=== PATIENT | female | born 1950 | race Caucasian/White ===

== ENCOUNTER 2020-12-08 12:29 | Observation (INO) ==
[2020-12-08] MEDS ORDERED: NITROGLYCERIN SL 0.4 MG TABLET SL PRN (13:03)
[2020-12-08 13:15] LABS: Basophils % 0.6 % (0.0-0.8); Eosinophils # 0.1 10*3/uL (0.0-0.87); Hematocrit 43.2 VOL% (35.7-47.0); Hemoglobin 13.9 GM/DL (12.0-16.0); Immature Granulocytes % 0.2 %; Immature Granulocytes Absolute 0.01 #; Lymphocytes % 38.2 % (21.3-54.2); Mean Corpuscular HGB Conc 32.2 GM/DL (32-36); Mean Platelet Volume 10.7 FL (9.6-12.0); Monocytes % 8.4 % (1.7-12.7); Neutrophils % 51.6 % (38.7-73.9); Platelet Count 165 T/CUMM (130-400); Red Blood Count 4.91 MC/CUMM (3.8-5.5); Red Cell Distribution Width 13.7 % (9.3-17.3); White Blood Count 5.2 T/CUMM (4-12)
[2020-12-08 13:28] LABS: PT Patient Result 10.7 SECS (9.8-11.9)
[2020-12-08 13:42] LABS: Albumin 4.2 G/DL (3.4-5.0); Bilirubin,Total 0.5 MG/DL (0.2-1.0); Calcium 8.8 MG/DL (8.5-10.1); Osmolality,Calculated 279.5 MOS/KG (273-304); Potassium 3.9 MMOL/L (3.5-5.1); Total Protein 7.1 G/DL (6.4-8.3)
[2020-12-08] MEDS ORDERED: DEXTROSE 50% 25 GM/50 ML VIAL IV PRN (14:24)
[2020-12-08] MEDS ORDERED: BISACODYL 5 MG TABLET PO PRN (14:24)
[2020-12-08] MEDS ORDERED: ASPIRIN CHEW 81 MG TABLET PO ONE (14:24)
[2020-12-08] MEDS ORDERED: ACETAMINOPHEN 325 MG TABLET PO PRN (14:24)
[2020-12-08] MEDS ORDERED: GLUCAGON 1 MG VIAL IM PRN (14:24)
[2020-12-08] MEDS ORDERED: ONDANSETRON 4 MG/2 ML VIAL IV PRN (14:24)
[2020-12-08] MEDS: PANTOPRAZOLE 40 MG TABLET PO SCH (16:38)
[2020-12-08] MEDS ORDERED: SERTRALINE 25 MG TABLET PO SCH ×3 (17:30→21:00)
[2020-12-08] MEDS ORDERED: ENOXAPARIN 80 MG/0.8 ML SYRINGE SUBCUT ONE (17:30)
[2020-12-08] MEDS ORDERED: SERTRALINE 25 MG TABLET PO ONE (17:44)
[2020-12-08] MEDS: carvediloL 3.125 MG TABLET PO SCH (18:11)
[2020-12-08] MEDS: ACETAMINOPHEN 325 MG TABLET PO SCH ×2 (18:12→20:55)
[2020-12-08] MEDS: GABAPENTIN 100 MG CAPSULE PO SCH ×2 (20:54→21:21)
[2020-12-08] MEDS ORDERED: SIMVASTATIN 40 MG TABLET PO SCH (21:00)
[2020-12-08] MEDS ORDERED: SIMVASTATIN 20 MG TABLET PO SCH (21:00)
[2020-12-08] MEDS ORDERED: ENOXAPARIN 40 MG/0.4 ML SYRINGE SUBCUT SCH (21:00)
[2020-12-09] MEDS ORDERED: LEVOTHYROXINE 88 MCG TABLET PO SCH (06:30)
[2020-12-09 06:38] LABS: Basophils % 0.7 % (0.0-0.8); Eosinophils # 0.1 10*3/uL (0.0-0.87); Eosinophils % 2.1 % (0.00-10.9); Hematocrit 40.8 VOL% (35.7-47.0); Hemoglobin 13.1 GM/DL (12.0-16.0); Immature Granulocytes % 0.5 %; Immature Granulocytes Absolute 0.02 #; Lymphocytes # 1.9 10*3/uL (1.4-4.0); Lymphocytes % 46.1 % (21.3-54.2); Mean Corpuscular HGB Conc 32.1 GM/DL (32-36); Mean Corpuscular Volume 90.1 FL (87-102); Mean Platelet Volume 11.3 FL (9.6-12.0); Monocytes % 9.5 % (1.7-12.7); Neutrophils % 41.1 % (38.7-73.9); Platelet Count 160 T/CUMM (130-400); Red Blood Count 4.53 MC/CUMM (3.8-5.5); Red Cell Distribution Width 13.8 % (9.3-17.3); White Blood Count 4.2 T/CUMM (4-12)
[2020-12-09 07:01] LABS: Calcium 8.6 MG/DL (8.5-10.1); Osmolality,Calculated 285.1 MOS/KG (273-304); Potassium 3.6 MMOL/L (3.5-5.1); Risk Ratio 4.44; VLDL CHOLESTEROL 32.8 MG/DL
[2020-12-09 08:13] VITALS: BP 108/52
[2020-12-09] MEDS: PANTOPRAZOLE 40 MG TABLET PO SCH (08:39)
[2020-12-09] MEDS: carvediloL 3.125 MG TABLET PO SCH (08:39)
[2020-12-09] MEDS: ACETAMINOPHEN 325 MG TABLET PO SCH (08:40)
[2020-12-09] MEDS: GABAPENTIN 100 MG CAPSULE PO SCH (08:40)
[2020-12-09] MEDS ORDERED: ASPIRIN EC 325 MG TABLET PO SCH (09:00)
[2020-12-09] MEDS ORDERED: PANTOPRAZOLE 40 MG TABLET PO SCH (09:00)
[2020-12-09] MEDS ORDERED: POTASSIUM CHLORIDE 10 MEQ TABLET PO SCH (09:00)
[2020-12-09] MEDS ORDERED: ASPIRIN EC 81 MG TABLET PO SCH (09:00)
[2020-12-09] MEDS ORDERED: FUROSEMIDE 20 MG TABLET PO SCH (09:00)
[2020-12-09] MEDS ORDERED: GABAPENTIN 100 MG CAPSULE PO SCH (09:00)
[2020-12-09] MEDS ORDERED: SERTRALINE 25 MG TABLET PO ONE (17:44)
[2020-12-09] MEDS ORDERED: ENOXAPARIN 40 MG/0.4 ML SYRINGE SUBCUT SCH (21:00)
== END 2020-12-09 10:43 | disposition home or self-care (01) ==
LOC: N.ED 12:29 → N.EDINP 12:29 → N.TELES 16:15
PROVIDERS: ADMIT Emergency Medicine; ATTEND Emergency Medicine

== ENCOUNTER 2021-08-17 12:23 | Inpatient (IN) ==
[2021-08-17] MEDS ORDERED: MAGNESIUM HYDROXIDE SUSP 30 ML UDCUP PO PRN (14:15)
[2021-08-17 15:15] LABS: Alanine Aminotransferase 18 U/L (13-56); Albumin 3.9 G/DL (3.4-5.0); Alkaline Phosphatase 87 U/L (45-117); Aspartate Amino Transferase 14 U/L (0-37); Bilirubin,Total < 0.39 MG/DL (0.20-1.00); Blood Urea Nitrogen 17 MG/DL (7-18); Carbon Dioxide 30 MMOL/L (21-32); Estimated Glom Filtration Rate 80 ML/MIN; Glucose 117 MG/DL (74-106); Osmolality,Calculated 288.8 MOS/KG (273-304); Potassium 4.2 MMOL/L (3.5-5.1); Sodium 144 MMOL/L (136-145); Total Protein 6.4 G/DL (6.4-8.2)
[2021-08-17 15:16] LABS: Basophils % 0.4 % (0.0-0.8); Eosinophils # 0.1 10*3/uL (0.0-0.87); Eosinophils % 1.1 % (0.00-10.9); Hematocrit 39.9 VOL% (35.7-47.0); Hemoglobin 12.7 GM/DL (12.0-16.0); Immature Granulocytes % 0.2 %; Immature Granulocytes Absolute 0.01 #; Lymphocytes # 1.1 10*3/uL (1.4-4.0); Lymphocytes % 18.9 % (21.3-54.2); Mean Corpuscular HGB Conc 31.8 GM/DL (32-36); Mean Corpuscular Volume 86.7 FL (87-102); Mean Platelet Volume 11.1 FL (9.6-12.0); Monocytes % 5.9 % (1.7-12.7); Neutrophils % 73.5 % (38.7-73.9); Platelet Count 141 T/CUMM (130-400); Red Cell Distribution Width 13.2 % (9.3-17.3); White Blood Count 5.6 T/CUMM (4-12)
[2021-08-17 15:27] LABS: INR 0.9; PT Patient Result 10.4 SECS (10.5-12.0)
[2021-08-17] MEDS: LACTATED RINGERS 1,000 ML IV SCH (17:25)
[2021-08-17] MEDS ORDERED: ONDANSETRON 4 MG/2 ML VIAL IV PRN (17:34)
[2021-08-17] MEDS ORDERED: DOCUSATE SODIUM 100 MG CAPSULE PO PRN (17:34)
[2021-08-17] MEDS ORDERED: ALBUTEROL 2.5 MG/3 ML NEB RESP TX PRN (17:35)
[2021-08-17] MEDS: SIMVASTATIN 40 MG TABLET PO SCH (20:15)
[2021-08-17] MEDS: SERTRALINE 25 MG TABLET PO SCH (20:25)
[2021-08-18] MEDS ORDERED: MORPHINE 2 MG/1 ML SYRINGE IV PRN (02:05)
[2021-08-18] MEDS: LACTATED RINGERS 1,000 ML IV SCH (04:08)
[2021-08-18 05:26] LABS: Basophils % 0.3 % (0.0-0.8); Eosinophils % 0.7 % (0.00-10.9); Hemoglobin 11.3 GM/DL (12.0-16.0); Immature Granulocytes % 0.3 %; Immature Granulocytes Absolute 0.02 #; Lymphocytes % 16.9 % (21.3-54.2); Mean Corpuscular HGB Conc 31.4 GM/DL (32-36); Mean Platelet Volume 11.2 FL (9.6-12.0); Monocytes % 9.4 % (1.7-12.7); Neutrophils % 72.4 % (38.7-73.9); Platelet Count 123 T/CUMM (130-400); Red Blood Count 4.09 MC/CUMM (3.8-5.5); Red Cell Distribution Width 13.3 % (9.3-17.3)
[2021-08-18 05:46] LABS: Calcium 8.6 MG/DL (8.5-10.1); Osmolality,Calculated 284.1 MOS/KG (273-304); Potassium 3.9 MMOL/L (3.5-5.1)
[2021-08-18 05:53] LABS: Risk Ratio 2.66; Thyroid Stimulating Hormone 3.38 uIU/ml (0.358-3.74); VLDL Cholesterol 17.4 MG/DL
[2021-08-18] MEDS: LEVOTHYROXINE 88 MCG TABLET PO SCH (06:51)
[2021-08-18] MEDS ORDERED: PANTOPRAZOLE 40 MG TABLET PO SCH (09:00)
[2021-08-18] MEDS ORDERED: ceFAZolin 2,000 MG/50 ML DUPLEX IV ONE (10:00)
[2021-08-18] MEDS ORDERED: MAGNESIUM HYDROXIDE SUSP 30 ML UDCUP PO PRN (10:00)
[2021-08-18] MEDS ORDERED: PROMETHAZINE 25 MG/1 ML VIAL IM PRN (10:00)
[2021-08-18] MEDS ORDERED: LACTULOSE 20 GM/30 ML UDCUP PO PRN (10:00)
[2021-08-18] MEDS ORDERED: BISACODYL 10 MG SUPP RECTAL PRN (10:00)
[2021-08-18] MEDS ORDERED: diphenhydrAMINE CAP 25 MG CAPSULE PO PRN (10:00)
[2021-08-18] MEDS ORDERED: MEPERIDINE 25 MG/1 ML VIAL IV PRN ×3 (10:03→11:25)
[2021-08-18] MEDS ORDERED: SEVOFLURANE 1 UNIT/15 MINUTE INH ONE ×4 (10:09→11:09)
[2021-08-18] MEDS ORDERED: DEXAMETHASONE 4 MG/1 ML VIAL ONE (10:09)
[2021-08-18] MEDS ORDERED: ROCURONIUM 50 MG/5 ML VIAL IV ONE (10:09)
[2021-08-18] MEDS ORDERED: MIDAZOLAM 2 MG/2 ML VIAL ONE (10:09)
[2021-08-18] MEDS ORDERED: LIDOCAINE 2% 5 ML VIAL ONE (10:09)
[2021-08-18] MEDS ORDERED: fentaNYL 100 MCG/2 ML VIAL ONE ×2 (10:09→10:45)
[2021-08-18] MEDS ORDERED: propofoL 200 MG/20 ML VIAL IV ONE (10:09)
[2021-08-18] MEDS ORDERED: ONDANSETRON 4 MG/2 ML VIAL ONE (10:09)
[2021-08-18] MEDS ORDERED: PHENYLEPHRINE 1 MG/10 ML SYRINGE IV ONE (10:28)
[2021-08-18] MEDS ORDERED: ONDANSETRON 4 MG/2 ML VIAL IV PRN (11:25)
[2021-08-18] MEDS ORDERED: NALOXONE 0.4 MG/ML VIAL IV PRN (13:51)
[2021-08-18] MEDS: SIMVASTATIN 40 MG TABLET PO SCH (20:30)
[2021-08-18] MEDS: SERTRALINE 25 MG TABLET PO SCH (20:32)
[2021-08-18] MEDS ORDERED: ASPIRIN EC 81 MG TABLET PO SCH ×2 (21:00)
[2021-08-19] MEDS: LACTATED RINGERS 1,000 ML IV SCH (01:59)
[2021-08-19 05:17] LABS: Basophils % 0.1 % (0.0-0.8); Hemoglobin 11.4 GM/DL (12.0-16.0); Immature Granulocytes % 0.6 %; Immature Granulocytes Absolute 0.06 #; Lymphocytes # 1.1 10*3/uL (1.4-4.0); Lymphocytes % 10.6 % (21.3-54.2); Mean Corpuscular HGB Conc 32.6 GM/DL (32-36); Mean Corpuscular Volume 86.4 FL (87-102); Monocytes % 8.3 % (1.7-12.7); Neutrophils % 80.4 % (38.7-73.9); Platelet Count 117 T/CUMM (130-400); Red Blood Count 4.05 MC/CUMM (3.8-5.5); Red Cell Distribution Width 13.1 % (9.3-17.3); White Blood Count 10.3 T/CUMM (4-12)
[2021-08-19 05:46] LABS: Calcium 9.3 MG/DL (8.5-10.1); Potassium 4.2 MMOL/L (3.5-5.1)
[2021-08-19] MEDS: LEVOTHYROXINE 88 MCG TABLET PO SCH (06:21)
[2021-08-19] MEDS ORDERED: PANTOPRAZOLE 40 MG TABLET PO SCH (09:00)
[2021-08-19 11:03] VITALS: BP 159/60
== END 2021-08-19 14:55 | disposition home or self-care (01) | DRG 494 ==
LOC: EDBD → EDUNIT# → N.ED 12:23 → N.EDINP 12:23 → N.3E 16:18
PROVIDERS: ADMIT Orthopaedic Surgery; ATTEND Orthopaedic Surgery